=== PATIENT | female | born 1980 | race Caucasian/White ===

== ENCOUNTER 2019-03-13 11:29 | Observation (INO) | payer OTHER ==
[~2019-03-13 11:29] MED LIST: Diazepam TAB(*) 5 MG PO PRN; ceFAZolin 1 GM/10 ML flush(*) SYRINGE for pocket flush (cardiology) FLUSH STA; ceFAZolin* 2 GM* ONE DOSE (Duplex) IVPB STA
[2019-03-13] MEDS ORDERED: Diazepam TAB(*) 5 MG ONE (11:35)
[2019-03-13] MEDS ORDERED: Midazolam* 1 MG/ML 5 ML VIAL (5 MG) ONE ×2 (11:44→12:24)
[2019-03-13] MEDS ORDERED: fentaNYL* 50 MCG/ML 2 ML VIAL (100 MCG VIAL) ONE ×2 (11:44→12:24)
[2019-03-13] MEDS ORDERED: Naloxone* 0.4 MG/ML 1 ML VIAL ONE (11:44)
[2019-03-13] MEDS ORDERED: Flumazenil* 0.1 MG/ML 5 ML MDV ONE (11:45)
[2019-03-13] MEDS ORDERED: Lidocaine 1% INJ* 10 MG/ML 30 ML SDV ONE (12:03)
[2019-03-13] MEDS ORDERED: Spironolactone TAB* 25 MG PO SCH (13:15)
[2019-03-13] MEDS: NS 0.9% 1000 ML** 1,000 ML IV SCH (15:15)
[2019-03-13] MEDS ORDERED: Atorvastatin* 80 MG TAB PO SCH (17:00)
[2019-03-13] MEDS ORDERED: metFORMIN* 500 MG TAB PO SCH (17:00)
[2019-03-13] MEDS ORDERED: glipiZIDE TAB* 5 MG PO SCH (17:00)
[2019-03-13] MEDS: oxyCODONE/Acetamin 5/325 MG* TAB PO PRN ×2 (17:31→23:01)
[2019-03-13] MEDS: Acetaminophen TAB* 325 MG PO PRN (18:40)
[2019-03-13] MEDS: ceFAZolin VIAL(*) 1 GM in NS 0.9% 50 ML* 50 ML IVPB SCH (19:10)
[2019-03-13] MEDS: metFORMIN* 500 MG TAB PO SCH (21:00)
[2019-03-13] MEDS: Metoprolol Succinate XL TAB* 100 MG PO SCH (21:00)
[2019-03-13] MEDS: Ticagrelor* 90 MG TAB PO SCH (21:00)
[2019-03-13] MEDS ORDERED: Aspirin 81 mg CHEW TAB* 81 MG TAB.CHEW PO SCH (21:00)
[2019-03-13] MEDS: Lisinopril TAB* 5 MG PO SCH (21:00)
[2019-03-13] MEDS: glipiZIDE TAB* 5 MG PO SCH (21:00)
--- NOTE | 2019-03-13 23:40 | OP ---
CC: Dr. Daljit Anand * DATE OF OPERATION: 03/13/19 - ROOM #433 DATE OF : 80 SURGEON: Brandon Garsia MD ANESTHESIA: Local anesthesia with conscious sedation. PRE-OP DIAGNOSIS: Ischemic cardiomyopathy. POST-OP DIAGNOSIS: Ischemic cardiomyopathy. OPERATIVE PROCEDURE: Single-chamber ICD implantation. ESTIMATED BLOOD LOSS: Nil. COMPLICATIONS: None. INDICATIONS: The patient is a 39-year-old female who suffered a myocardial infarction which resulted in ischemic cardiomyopathy, ejection fraction less than 35%. Her event was greater than 90 days ago. Single-chamber ICD implantation was recommended per guidelines. The risks and alternatives to ICD implantation were discussed in great detail with the patient. DESCRIPTION OF PROCEDURE: The patient was brought to the procedure room in a fasting state. Informed consent had been obtained prior to the procedure, all labs had been reviewed. The patient was placed supine on the procedure table. Her left deltopectoral area was cleaned and draped in the usual fashion. 1% lidocaine was used for local anesthesia. Under ultrasound guidance, the axillary vein was entered by Seldinger technique and a guidewire was placed. A 4 cm incision was made in the pectoral area, blunt dissection was carried down to the pectoral fascia, and a pocket was fashioned for the ICD. Over the guidewire, a 9-Monegasque sheath introducer was placed through which a right ventricular ICD lead was advanced to the RV apex. The right ventricular lead is a [employer], model [id number], serial number [id number]. The right ventricular lead had an R-wave sensitivity of 5, impendence 550 ohms, threshold 0.5 volts at 25 msec. The ventricular lead was sutured to the pectoral fascia. The pocket was flushed. A generator was attached to the ventricular lead. The generator was a [employer], model [id number], serial number [id number]. The device was placed into the pocket. The surgical incision was closed in 3 layers. The patient tolerated the procedure well without complications. [id number]/[facility] #: [id number] MTDD
[2019-03-14] MEDS: NS 0.9% 1000 ML** 1,000 ML IV SCH (01:53)
[2019-03-14] MEDS: Acetaminophen TAB* 325 MG PO PRN ×2 (01:57→09:35)
[2019-03-14] MEDS: ceFAZolin VIAL(*) 1 GM in NS 0.9% 50 ML* 50 ML IVPB SCH ×2 (03:15→11:15)
[2019-03-14] MEDS: oxyCODONE/Acetamin 5/325 MG* TAB PO PRN (06:31)
[2019-03-14] MEDS: Metoprolol Succinate XL TAB* 100 MG PO SCH (09:34)
[2019-03-14] MEDS: glipiZIDE TAB* 5 MG PO SCH (09:37)
[2019-03-14] MEDS: Ticagrelor* 90 MG TAB PO SCH (09:37)
[2019-03-14] MEDS: Lisinopril TAB* 5 MG PO SCH (09:37)
[2019-03-14] MEDS: metFORMIN* 500 MG TAB PO SCH (09:37)
--- NOTE | 2019-03-14 11:42 | DS ---
CC: Dr. Daljit Anand; Dr. Henrry Milton DISCHARGE SUMMARY: DATE OF ADMISSION: 03/13/19 DATE OF DISCHARGE: 03/14/19 PRIMARY CARE PHYSICIAN: Dr. Henrry Milton. HISTORY OF PRESENT ILLNESS AND HOSPITAL COURSE: Pam Mcdonough is a 39-year-old woman with an ischemic cardiomyopathy with an ejection fraction of 25% as well as RV hypokinesis. The patient presented in December 2018 with an anterior wall DC and V- fib arrest. Her ejection fraction did not improve sign ificantly with aggressive medical management and she was admitted for ICD implantation. The patient underwent ICD implantation yesterday, 03/13/19, with Dr. Brandon Garsia ([employer] single-chamber devic e). Today, the patient is feeling well. She had no shortness of breath overnight. No orthopnea. No PND . No chest pain. The incision is itchy, but no other sort of discomfort at the site. PROBLEM LIST: 1. Coronary artery disease status post anterior wall DC. 2. Ischemic cardiomyopathy. 3. VF arrest. 4. Right bundle branch block. 5. RV dysfunction. 6. Obesity. 7. Diabetes. 8. Dyslipidemia. 9. Sleep apnea. 10. Hypertension ALLERGIES: She has no known drug allergies. PHYSICAL EXAMINATION: On exam, the day of discharge the patient is 5 feet 4 inches, weight 244 pound s with a BMI of 42, blood pressure 114/73, respiratory rate 20, pulse 75, oxygen saturation on room a ir 96%, and she has been afebrile overnight. General Appearance: Very overweight, middle-aged woman in no acute distress. Psychologically pleasant, cooperative. Neurologically awake, alert, oriented to person, place, and time. Grossly normal sensory and motor function on chair exam. Skin: Warm, dry, no appreciable cyanosis or rashes. ICD incision on the left subclavian fossa have some very mil d ecchymosis and dried blood. No evidence of infection or hematoma. The site is nontender. I do no t see any evidence of contact dermatitis. HEENT: Mucous membranes moist. Neck: Thick from obesity without appreciable increase in JVP. Breath sounds were clear in all mccord, no wheezes, rales, or rhonchi. Coronary: S1, S2, regular, distant, no murmurs. Abdomen: Overweight, active bowel sounds , nontender, and lower extremities are free of edema and warm. FINDINGS: The patient's chest x-ray yesterday and today shows good lead placement, no evidence of pn eumothorax, and no evidence of congestive heart failure. ICD interrogation done today confirmed she has a [employer] Assura VR 1357- 40QICD, serial numb er [id number]. The defibrillator lead impedance RV to Can was 59 ohms. Pacing lead impedance was 550 o hms. R waves were sensed at 3.4 millivolts with the ventricular pacing threshold of 0.5 volts at 0.5 milliseconds. Programming VT zone-1 150 beats a minute or faster to monitor, VT-2 171 beats a minute or faster for ATP x3 followed by 3 defibrillations, next zone VF is 200 beats a minute or greater wi th ATP x1 and defibrillations to follow. Labs this admission, glucose 114. In summary, Pam Mcdonough is a 39-year-old woman with a severe ischemic cardiomyopathy, postop day #1 f or ICD implantation, clinically doing well. DISCHARGE MEDICATIONS: As follows: 1. Lisinopril 5 mg b.i.d. 2. Lasix 20 mg Tuesday, Tuesday, Tuesday. 3. Spironolactone 12.5 mg a day. 4. Aspirin 81 mg a day. 5. Atorvastatin 80 mg a day. 6. Brilinta 90 mg b.i.d. 7. Lisinopril 5 mg b.i.d. 8. Metformin will be resumed when she gets home at 500 mg a day. 9. Toprol-XL 100 mg a day. 10. Nitroglycerin p.r.n. New medication will include Keflex 500 mg t.i.d. for 3 days. She will follow up in [address] Garsia for wound check, and in approximately [address] Cris faith for full defibrillator interrogation and followup. CONDITION: Hemodynamically stable in good condition at the time of discharge. DISPOSITION: Home. [id number]/[facility] #: [id number]
[2019-03-14 12:04] VITALS: BP 102/62
== END 2019-03-14 12:07 | disposition home or self-care (01) ==
LOC: CHICATH 11:29 → MEDTELE 13:41
PROVIDERS: ADMIT Specialist; ATTEND Specialist
DX: I50.22 Chronic systolic (congestive) heart failure (principal); I25.5 Ischemic cardiomyopathy; I25.10 Atherosclerotic heart disease of native coronary artery without angina pectoris; I25.2 Old myocardial infarction; I45.10 Unspecified right bundle-branch block; E11.9 Type 2 diabetes mellitus without complications; E78.5 Hyperlipidemia, unspecified; G47.30 Sleep apnea, unspecified; I10 Essential (primary) hypertension; E66.01 Morbid (severe) obesity due to excess calories; Z79.82 Long term (current) use of aspirin
CPT/HCPCS: 33249; 71045; 71046; 93005; 96372; 96374; 99156; 99157; A9270-GY; C1722; C1895; G0378; J0690; J2250; J2310; J3010

== ENCOUNTER 2019-11-20 03:16 | Emergency (ER) | payer OTHER ==
[2019-11-20] MEDS ORDERED: Diltiazem IV push/loading dose 5 MG/ML 5 ML vial (25 mg) IV PUSH ONE (03:33)
[2019-11-20] MEDS ORDERED: Diltiazem IV BAG* D5W Premix 125 MG/125 ML BAG IV ONE (03:33)
--- NOTE | 2019-11-20 03:33 | ED ---
HPI Chest Pain - HPI Summary HPI Summary: This patient is a 39 year old female presenting to [facility] with a chief complaint of chest pain. Pt states she awoke in the middle of the night tonigh with a sudden squeezing of her heart, thinks her internal defibrillator went off. She states she is having the same symptoms as when she had an CO in 01/10/19. She rates her pain 8/ 10 in severity. She reports SOB. - History of Current Complaint Chief Complaint: EDChestPainROMI Time Seen by Provider: 11/20/19 03:26 Hx Obtained From: Patient Hx Last Menstrual Period: 12 years ago Onset/Duration: Started Hours Ago Pain Intensity: 8 Pain Scale Used: 0-10 Numeric - Additional Pertinent History Primary Care Physician: BROOK - Allergy/Home Medications Allergies/Adverse Reactions: Allergies Allergy/AdvReac Type Severity Reaction Status Date / Time No Known Allergies Allergy Verified 03/13/19 11:13 PMH/Surg Hx/FS Hx/Imm Hx Endocrine/Hematology History: Denies: Hx Diabetes, Hx Thyroid Disease Cardiovascular History: Reports: Hx Angina, Hx Coronary Artery Disease, Hx Hypercholesterolemia, Hx Hypertension, Hx Myocardial Infarction Denies: Hx Pacemaker/ICD, Hx Valvular Heart Disease Respiratory History: Denies: Hx Asthma, Hx Chronic Obstructive Pulmonary Disease (COPD) GI History: Denies: Hx Ulcer Sensory History: Reports: Hx Contacts or Glasses Denies: Hx Hearing Aid Opthamlomology History: Reports: Hx Contacts or Glasses Infectious Disease History: No Infectious Disease History: Denies: Hx Hepatitis, Hx Human Immunodeficiency Virus (HIV), Traveled Outside the [place] in Last 30 Days - Family History Known Family History: Positive: Cardiac Disease - Social History Alcohol Use: None Alcohol Amount: twice a month Substance Use Type: Reports: None Smoking Status (MU): Heavy Every Day Tobacco Smoker Type: Cigarettes Amount Used/How Often: 1 ppd Have You Smoked in the Last Year: Yes Review of Systems Positive: Chest Pain Positive: Shortness Of Breath All Other Systems Reviewed And Are Negative: Yes Physical Exam - Summary Physical Exam Summary: Appearance: Well-appearing, Well-nourished, lying in bed comfortably Skin: Warm, dry, no obvious rash Eyes: sclera anicteric, no conjunctival pallor ENT: mucous membranes moist, pharynx appears normal Neck: Supple, nontender Respiratory: Clear to auscultation, no signs of respiratory distress Cardiovascular: Normal S1, S2. No murmurs. Normal distal pulses in tibial and radial bilaterally. Abdomen: Soft, nontender, normal active bowel sounds present Musculoskeletal: Normal, Strength/ROM Intact Neurological: A&Ox3, awake and alert, mentation is normal, speech is fluent and appropriate Psychiatric: affect is normal, does not appear anxious or depressed Triage Information Reviewed: Yes Vital Signs On Initial Exam: Initial Vitals Temp Pulse Resp BP Pulse Ox 98.0 F 151 15 126/97 100 11/20/19 03:18 11/20/19 03:18 11/20/19 03:18 11/20/19 03:18 11/20/19 03:18 Vital Signs Reviewed: Yes Procedures - Sedation Patient Received Moderate/Deep Sedation with Procedure: No Diagnostics - Vital Signs Vital Signs Temp Pulse Resp BP Pulse Ox 11/20/19 03:18 98.0 F 151 15 126/97 100 - Laboratory Result Diagrams: 11/20/19 03:41 11/20/19 03:41 Lab Statement: Any lab studies that have been ordered have been reviewed, and results considered in the medical decision making process. - EKG 0317 Cardiac Rate: Tachycardia - 142 BPM EKG Rhythm: Atrial Fibrillation Summary of EKG Findings: RBBB and LAFB. ED Physician has reviewed and interpreted this EKG. Chest Pain Course/Dx - Course Course Of Treatment: This patient is a 29 year old female presenting to [facility] with a chief complaint of chest pain. EKG at 0317 revealed AFIB at 142 BPM with LAFB and RBBB. The AFIB resolved spontaneously, and the patient felt better. Plan for discharge and followup was discussed with the patient and she was agreeable with this plan. - Diagnoses Provider Diagnoses: Afib - Critical Care Time Critical Care Time: 30-74 min Discharge ED - Sign-Out/Discharge Documenting (check all that apply): Patient Departure - Discharge - Discharge Plan Condition: Stable Disposition: HOME Patient Education Materials: A-fib (Atrial Fibrillation) (ED) Referrals: Sanket Lobo MD [Medical Doctor] - Additional Instructions: Call your safety risk lead's office in the morning to schedule a followup. You had a bout of atrial fibrillation that reverted back to a normal rhythm spontaneously, so it's ok for you to return home tonight. However your safety risk lead will likely want to get further testing on you to see if the atrial fibrillation is coming and going. - Billing Disposition and Condition Condition: STABLE Disposition: Home - Attestation Statements Document Initiated by Daniella: Yes Documenting Castroibe: José Miguel Cam Provider For Whom Daniella is Documenting (Include Credential): Gio Villa MD Scribe Attestation: IJosé Miguel, scribed for Gio Villa MD on 11/20/19 at 0557. Scribe Documentation Reviewed: Yes Provider Attestation: The documentation as recorded by the José Miguel witt accurately reflects the service I personally performed and the decisions made by me, Gio Villa MD Status of Scribe Document: Viewed
[2019-11-20 03:50] LABS: ABS Basophils 0.1 10^3/ul (0-0.2); ABS Eosinophils 0.3 10^3/ul (0-0.6); ABS Lymphocytes 3.8 10^3/ul (1.0-4.8); ABS Neutrophils 6.6 10^3/ul (1.5-7.7); Eosinophil % 2.2 %; Hematocrit 39 % (35-47); Hemoglobin 13.2 g/dL (12.0-16.0); Lymphocyte % 32.1 %; Mean Corpuscular HGB Conc 34 g/dL (31-36); Mean Corpuscular Hemoglobin 28 pg (27-31); Mean Corpuscular Volume 84 fL (80-97); Mean Platelet Volume 9.7 fL (7.4-10.4); Platelet Count 230 10^3/uL (150-450); Red Blood Count 4.66 10^6 /uL (3.70-4.87); Red Cell Distribution Width 14 % (10-15); White Blood Count 11.8 10^3/uL (3.5-10.8)
[2019-11-20 04:06] LABS: Albumin 4.2 g/dL (3.2-5.2); Albumin/Globulin Ratio 1.9 (1-3); BUN/Creatinine Ratio 21.3 (8-20); Calcium 8.9 mg/dL (8.6-10.3); EGFR African American 85.4 (>60); EGFR Non-African American 70.6 (>60); Globulin 2.2 g/dL (2-4); Magnesium 1.6 mg/dL (1.9-2.7); Potassium 3.5 mmol/L (3.5-5.0); Total Bilirubin 0.7 mg/dL (0.2-1.0); Total Protein 6.4 g/dL (6.4-8.9)
[2019-11-20 04:07] LABS: Troponin I 0.01 ng/mL (<0.03)
[2019-11-20 04:34] VITALS: BP 91/59
[2019-11-20 04:35] LABS: TSH (Thyroid Stimulating Horm) 3.84 mcIU/mL (0.34-5.60)
== END 2019-11-20 04:51 | disposition home or self-care (01) ==
LOC: ED 03:16
DX: I48.91 Unspecified atrial fibrillation (principal); I45.2 Bifascicular block; R06.02 Shortness of breath; J81.1 Chronic pulmonary edema; I25.2 Old myocardial infarction; I10 Essential (primary) hypertension; Z95.810 Presence of automatic (implantable) cardiac defibrillator; F17.210 Nicotine dependence, cigarettes, uncomplicated
CPT/HCPCS: 36415; 71045; 80053; 83605; 83735; 84443; 84484; 85025; 93005; 96365; 96375; 99283; J3490

== ENCOUNTER 2021-09-24 17:18 | Inpatient (IN) ==
[2021-09-24 18:12] LABS: ABS Eosinophils 0.1 10^3/ul (0-0.6); ABS Lymphocytes 1.8 10^3/ul (1.0-4.8); ABS Monocytes 0.7 10^3/ul (0-0.8); ABS Neutrophils 4.2 10^3/ul (1.5-7.7); Eosinophil % 0.9 %; Hematocrit 40 % (35-47); Hemoglobin 13.3 g/dL (12.0-16.0); Mean Corpuscular HGB Conc 33 g/dL (31-36); Mean Corpuscular Hemoglobin 28 pg (27-31); Mean Corpuscular Volume 84 fL (80-97); Mean Platelet Volume 9.2 fL (7.4-10.4); Platelet Count 272 10^3/uL (150-450); Red Blood Count 4.72 10^6 /uL (3.70-4.87); Red Cell Distribution Width 12 % (10-15); White Blood Count 6.8 10^3/uL (3.5-10.8)
[2021-09-24 18:23] LABS: INR 1.16 (0.86-1.15)
[2021-09-24 18:29] LABS: ALT 67 U/L (7-52); AST 36 U/L (13-39); Albumin/Globulin Ratio 1.3 (1-3); Alkaline Phosphatase 63 U/L (35-149); Anion Gap 8 mmol/L (2-11); Blood Urea Nitrogen 12 mg/dL (6-24); CO2 Carbon Dioxide 27 mmol/L (22-32); Calcium 9.4 mg/dL (8.6-10.3); Chloride 103 mmol/L (101-111); Glucose 140 mg/dL (70-100); Potassium 4.4 mmol/L (3.5-5.0); Sodium 138 mmol/L (135-145)
[2021-09-24 18:48] LABS: Troponin I 0.09 ng/mL (<0.03)
[2021-09-24 20:33] LABS: Troponin I 0.11 ng/mL (<0.03)
[2021-09-24] MEDS ORDERED: Ondansetron 4 mg VIAL 2 MG/ML 2 ml VIAL IV PRN (22:16)
[2021-09-24] MEDS ORDERED: Dextrose 50% Syringe 50 ml 25 GM/50 ML SYRINGE IV PUSH PRN (22:26)
[2021-09-24] MEDS ORDERED: Heparin DRIP 25,000 UNITS BAG 25,000 UNITS/500 ML BAG IV SCH (22:30)
[2021-09-24 22:41] LABS: Rapid COVID-19 Molecular Undetected (Undetected)
[2021-09-24 23:38] LABS: Troponin I 0.12 ng/mL (<0.03)
[2021-09-25] MEDS: Heparin 5000 UNITS/ML 1 mL VIAL IV SCH ×2 (00:04→07:23)
[2021-09-25 06:54] LABS: ABS Eosinophils 0.1 10^3/ul (0-0.6); ABS Lymphocytes 2.4 10^3/ul (1.0-4.8); ABS Monocytes 0.7 10^3/ul (0-0.8); ABS Neutrophils 2.7 10^3/ul (1.5-7.7); Eosinophil % 1.6 %; Hematocrit 36 % (35-47); Hemoglobin 12.3 g/dL (12.0-16.0); Lymphocyte % 40.6 %; Mean Corpuscular HGB Conc 34 g/dL (31-36); Mean Corpuscular Hemoglobin 28 pg (27-31); Mean Corpuscular Volume 83 fL (80-97); Mean Platelet Volume 8.8 fL (7.4-10.4); Platelet Count 222 10^3/uL (150-450); Red Blood Count 4.32 10^6 /uL (3.70-4.87); Red Cell Distribution Width 12 % (10-15)
[2021-09-25 07:02] LABS: INR 1.19 (0.86-1.15)
[2021-09-25 07:08] LABS: Calcium 9.1 mg/dL (8.6-10.3); HDL Cholesterol 21.2 mg/dL
[2021-09-25] MEDS ORDERED: Sacubitril/Valsartan 97/103(NF) PO SCH (09:00)
[2021-09-25 09:35] LABS: Thyroid Peroxidase Antibodies 0.85 IU/mL (<9)
[2021-09-25] MEDS ORDERED: Digoxin IV 0.5 MG/2 ML AMP (0.25 MG/ML) IV SLOW PU ONE (11:42)
[2021-09-25] MEDS ORDERED: Perflutren Lipid Microsphere 3 ML VIAL ONE (15:46)
[2021-09-26 05:54] LABS: ABS Eosinophils 0.1 10^3/ul (0-0.6); ABS Lymphocytes 1.7 10^3/ul (1.0-4.8); ABS Monocytes 0.7 10^3/ul (0-0.8); Eosinophil % 1.7 %; Hematocrit 37 % (35-47); Hemoglobin 12.4 g/dL (12.0-16.0); Lymphocyte % 25.9 %; Mean Corpuscular HGB Conc 34 g/dL (31-36); Mean Corpuscular Hemoglobin 28 pg (27-31); Mean Corpuscular Volume 84 fL (80-97); Mean Platelet Volume 8.7 fL (7.4-10.4); Platelet Count 227 10^3/uL (150-450); Red Blood Count 4.42 10^6 /uL (3.70-4.87); Red Cell Distribution Width 12 % (10-15); White Blood Count 6.5 10^3/uL (3.5-10.8)
[2021-09-26 06:12] LABS: Anion Gap 8 mmol/L (2-11); Blood Urea Nitrogen 13 mg/dL (6-24); CO2 Carbon Dioxide 23 mmol/L (22-32); Calcium 9.2 mg/dL (8.6-10.3); Chloride 106 mmol/L (101-111); Glucose 105 mg/dL (70-100); Sodium 137 mmol/L (135-145)
[2021-09-26 06:39] LABS: % Iron Saturation 12 % (15-55); Iron 31 ug/dL (50-212); Total Iron Binding Capacity 252 mcg/dL (250-450); Transferrin 180 mg/dL (203-362); Unsaturated Iron Binding < 237 ug/dL
[2021-09-26 07:00] LABS: Ferritin 542.7 ng/mL (11-307)
[2021-09-26 11:07] LABS: Digoxin 0.5 ng/ml (0.8-2.0)
[2021-09-26 11:26] LABS: Troponin I 0.08 ng/mL (<0.03)
[2021-09-26 11:55] VITALS: BP 106/77
[2021-09-26] MEDS ORDERED: Iron Sucrose 200 MG in NS 0.9% 100 ml BAG 100 ML IVPB ONE (13:00)
== END 2021-09-26 15:30 | disposition home or self-care (01) | DRG 424 ==
LOC: ED 17:18 → MEDTELE 22:02 → SUATTDRO 22:02 → MEDTELE 09-25 01:40
PROVIDERS: ADMIT Internal Medicine; ATTEND Internal Medicine